=== PATIENT | female | born 1995 | race Hispanic/Latino ===

== ENCOUNTER 2016-07-18 10:48 | Emergency (ER) | payer OTHER ==
[2016-07-18 11:08] VITALS: BP 116/62; PULSE 150; RESP 18; O2SAT 98
[2016-07-18] MEDS ORDERED: MetoCLOpramide 5 mg/mL 2 mL Inj IVPUSH ONE (11:40)
[2016-07-18] MEDS ORDERED: 0.9% Sodium Chloride 1,000 ML IV ONE ×2 (11:40→13:55)
--- NOTE | 2016-07-18 12:19 | ED.REPORT ---
XEP-Dau-Gkgy Illness Date of Service Jul 18, 2016 ED Provider: Jack Crook PA-C Luis Fernando is an otherwise healthy 21-year-old female who presents to the chief complaint of fever and vomiting. Patient reports a three-day history of sore throat, fever/chills, ear pain, headache, cough productive of yellow sputum , nausea and vomiting associated with the cough. She has been treating her fever with one regular strength Tylenol. Her has been uncomplicated to this point and she is followed by Dr. Alexis Feldman. She is up-to-date on her vaccinations including the flu shot. Denies shortness of breath, wheezing, chest pain, urinary symptoms, vaginal bleeding. Nursing Notes Stated Complaint: FEVER/ VOMITING Chief Complaint: FLU/Cold Symptoms Nursing Notes Reviewed: Yes Allergies: Coded Allergies: No Known Allergies (Unverified , 07/18/16) Scheduled PRN Metoclopramide (Metoclopramide) 10 Mg Tablet 10 MG PO QID PRN PRN For Nausea General Time Seen by Provider: 11:35 Chief Complaint Fever Review of Systems Negative unless stated otherwise in history of present illness Physical Exam General: , Well appearing, well developed, well nourished, no acute distress. Head: Atraumatic, normocephalic. No mastoid tenderness. Eyes: No scleral icterus or injection. No discharge. PERRL. Vision grossly intact. No conjunctival pallor. Ears: Pinna and tragus nontender with manipulation. External auditory canal patent, atraumatic and without discharge. Tympanic membrane bettencourt, shiny and translucent without fluid, bulging, retraction or perforation. Hearing grossly intact. Nose: Symmetrical, nares patent without discharge. No frontal or maxillary sinus tenderness. Mouth/pharynx: normal dentition, mucus membranes moist. Tonsils 2+ and symmetrical, uvula midline. Pharynx noninjected, no cobblestoning or discharge. Voice clear. Neck: No tenderness or lymphadenopathy. Trachea midline. Respiratory: Regular rate and rhythm. Breath sounds present, clear to auscultation and equal bilaterally. Cardiovascular: Regular rate and rhythm, without murmur, gallop or rub. No pedal edema. Gastrointestinal: abdomen non-tender without guarding or rebound. Bowel sounds normoactive. Skin: Warm and dry. Neurological: Grossly nonfocal. Psychological: Alert and oriented. Speech appropriate, linear and logical. Behavior appropriate. Initial Vital Signs Vital Signs (First) Date Time Temp Pulse Resp B/P Pulse Ox O2 Delivery O2 Flow Rate FiO2 07/18/16 11:08 37.4 150 18 116/62 98 07/18/16 13:54 Room Air Initial VS: Reviewed, Vital signs abnormal (tachycardic) Interpretation & Diagnostics Interpretation & Diagnostics: Positive for flu A, negative for flu B Lab Results Interpretation Test 07/18/16 12:41 Hold Purple Top Tube Received (Received) Hold Blue Top Tube Received (Received) Hold [place] Top Tube Received (Received) Re-Evaluation & MDM Med Decision/Clinical Course PERC criteria not met (HR =124) Wells' Criteria low risk History and physical raise concern for flu, pneumonia, preeclampsia. Flu swab is positive for flu a, and physical is reassuring regarding other diagnoses. Pulmonary embolus is considered due to significant tachycardia on presentation that improved only slightly after 2 L of fluid. I discussed case with Dr. Dodson, who evaluated the patient. We feel that her tachycardia is well explained by the presence of influenza and . Tamiflu is eliminated because of the duration of symptoms. Offered symptomatic care. Discharge the patient to primary care follow-up within 2 days and provided return precautions. Re-Evaluation/Progress #1: Time of Eval: 12:58 Re-Evaluation/Progress Note: Nausea improved, still feels flushed and heart rate measured at 140 bpm. NS has just started Re-Evaluation/Progress #2: Time of Eval: 16:07 Re-Evaluation/Progress Note: Following 2 L of normal saline, Patient still feels well, however tachycardia is not resolved measuring about 124. Respiratory rate 20. Consultation #1: Referral / Consult Name: Ailyn Pettit MD Requested Call at: 16:21 Call Returned at: 16:26 Note: Discussed the case, Dr. Pettit feels that I should work her up for PE if tachycardia not Sufficiently explained by flu symptoms. Consultation #2: Referral / Consult Name: Juan David Dodson MD Call Returned at: 16:36 Note: Discussed case with Dr. Dodson, who met with and examine the patient. He feels the tachycardia is sufficiently explained by the patient's and active influenza. Advised discharge with close follow-up. Patient Discharge & Departure Impression: Primary Impression: Influenza due to influenza A virus Disposition: Home Discharge Condition All VS Reviewed: Yes Condition: Stable Patient Instructions: Influenza (ED) Additional Instructions: Evaluation for fever and vomiting in the emergency department today. Flu swab was positive for influenza A. Physical exam revealed a fast heart rate that improved after 2 L of fluid. This did make me concerned for possible blood clot in your lungs, but the lack of other symptoms makes your influenza and the most likely cause of the fast heart rate. We believe you are stable and safe to be discharged home. Because your symptoms started 3 days ago there is no benefit to anti-flu medications, rather the treatment is symptomatic. I recommend [id number] Tylenol for fever and pain. Dextromethorphan (Robitussin 12 hour cough relief, or Delsym) is a safe cough suppressant during . I will prescribe an antinausea medication. Otherwise rest as much as possible and sip small amounts of fluid throughout the day. He planted food as tolerated. Follow-up with your primary care provider a couple of days. Return to emergency department for any new or worsening symptoms including vomiting not controlled with medication, high fever , severe headache, shortness of breath, cough, severe leg swelling especially if it is only in one leg. Referrals: Alexis Vazquez MD (PCP) EDSupervising Provider for APC: Juan David Dodson MD Attending Statement I was personally available for consultation in the Emergency Department. I have reviewed the chart and agree with the documentation as recorded by the Midlevel Provider, including the assessment, treatment plan, and the disposition. I examined the patient myself. I have interviewed the patient and discussed all the risk factors I do not believe that further workup is indicated at this time. Specifically I do not think a PE workup is necessary. copies to: Alexis Vazquez MD, Seth PA-C Jul 18, 2016 12:19 Juan David Dodson MD Jul 20, 2016 18:16
[2016-07-18 13:54] VITALS: BP 102/67; PULSE 114; RESP 26; O2SAT 99
[2016-07-18 16:30] VITALS: BP 98/66; PULSE 113; RESP 20; O2SAT 98
[2016-07-18] MEDS ORDERED: METO10TA3 PO (16:50)
== END 2016-07-18 16:45 | disposition home or self-care (01) ==
LOC: SED 10:48
DX: O99.519 Diseases of the respiratory system complicating pregnancy, unspecified trimester (principal); J10.89 Influenza due to other identified influenza virus with other manifestations; Z3A.00 Weeks of gestation of pregnancy not specified
CPT/HCPCS: 87804; 96361; 96374; 99284; J2765; J7030

== ENCOUNTER 2016-09-22 01:42 | Inpatient (IN) | payer OTHER ==
[~2016-09-22] VITALS: Ht 154.9 cm; Wt 87.1 kg
[~2016-09-22 01:42] MED LIST: METO10TA3 PO
[2016-09-22] MEDS ORDERED: Lactated Ringer's 1,000 ML IV PRN (02:37)
[2016-09-22] MEDS ORDERED: Oxytocin 10 Unit/mL Inj IM PRN ×2 (02:40→13:35)
[2016-09-22] MEDS ORDERED: Sodium Chloride LOK Flush 10 mL Syringe IVFLUSH PRN (02:40)
[2016-09-22] MEDS ORDERED: Carboprost 250 mCg/mL Inj IM PRN ×2 (02:40→13:35)
[2016-09-22] MEDS ORDERED: Oxytocin 30 Units/500 mL LR 30 UNITS in IV Premix 1 EACH IV PRN ×2 (02:40→07:25)
[2016-09-22] MEDS ORDERED: Hemorrhage Kit, Post Partum XX ONE ×2 (02:40→13:35)
[2016-09-22] MEDS ORDERED: Methylergonovine 0.2 mg/mL Inj IM PRN ×2 (02:40→13:35)
[2016-09-22] MEDS ORDERED: fentaNYL-PF 50 mCg/mL 2 mL Inj IVPUSH PRN (02:50)
[2016-09-22 03:00] LABS: Mean Corpuscular Hemoglobin 27.6 pg (27.0-35.0)
--- NOTE | 2016-09-22 04:09 | HP ---
[address] [address] HISTORY AND PHYSICAL PATIENT: EVERARDO CONKLIN : 1995 MR#: [id number] ADMIT: 09/22/2016 JOB ID: [id number] CHIEF COMPLAINT: Contractions. HISTORY OF PRESENT ILLNESS: This is a 21-year-old obstetrical patient of mine who is a primipara with a due date of September 21, who presents complaining of increasing contraction intensity and frequency over the last 24 hours. She notes passing of mucus plug off and on through the 24 hours, but otherwise no vaginal discharge. She came into the Center overnight last night with contractions, but once she was here the contractions fell off and she was found to be entirely closed, not dilated at all, but very thin, and she was sent home. On presentation here, she is 4-5 cm, 80% effaced, and baldo regularly, and so was admitted for expectant management. heart tracing remains nice and reactive. She has no other acute complaints. PAST OBSTETRICAL HISTORY: She is a primiparous patient with gynecological history that is fairly unremarkable, except for an ovarian cyst on the right that was merely observed and not treated aggressively. She had menarche at 12 years old and has periods that are fairly irregular, about every 30 days, lasting about five days per menses. Otherwise, her gynecological history is unremarkable. Her course has been unremarkable. Her due date is based on a six week ultrasound. LABORATORIES: Her blood type is A-positive. She is rubella immune. Serology is nonreactive. She is negative hepatitis B, hepatitis C, HIV, antibody screen, Chlamydia and gonorrhea. Hematocrit is 37.5 with the initial set of labs and at 28 weeks dropped down to 33.8. Pap smear was fairly unremarkable. MSAFP test was done around 18 weeks and was normal. Diabetic screening test was done at 28 weeks and was negative. Group B strep was done at about 36 weeks and was negative. Of note, she did get a flu vaccination and Tdap in March and April respectively. PAST MEDICAL HISTORY: Entirely unremarkable. SURGICAL HISTORY: Negative. FAMILY HISTORY: Significant for diabetes in her father and paternal grandmother, and hypertension in maternal grandmother. She has a paternal aunt with twins. SOCIAL HISTORY: The patient lives in [place] with her parents. 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 She is a nonsmoker, having never smoked, and does not drink any alcohol. ALLERGIES: The patient has no known drug allergies. CURRENT MEDICATIONS: None, except for vitamins. REVIEW OF SYSTEMS: The patient denies any chest pain, palpitations, or shortness of breath. No abdominal pain except for the contraction pain. No recent illness. No swelling in her feet. No significant headaches and no visual changes. PHYSICAL EXAMINATION: Well-developed obese woman in no apparent distress. Her vital signs are normal. Weight is 193 pounds. Height is 61 inches. Lungs are clear to auscultation bilaterally with good air movement. Heart is regular rate and rhythm. No significant murmur is heard. Abdomen: Gravid, otherwise unremarkable. Extremities show no cyanosis, clubbing or edema. Normal deep tendon reflexes. Cervical exam shows her to be 4-5 cm, 80% effaced, -2 station, vertex position. heart tracing is reactive. She is baldo about every 2-3 minutes. ASSESSMENT AND PLAN: Intrauterine at term, in active labor. Will admit for expectant management. The patient is interested in getting an epidural so I have discussed the case with Anesthesia to ask for their assistance. I discussed routine expectant management issues and procedures. Also, I discussed potential complications and the usual obstetrical procedures to address them, but also the possible need for surgical care if a section becomes needed. I also discussed the possible need for assistance with vacuum extraction and the associated potential complications. All of her questions were answered, she expressed understanding of these issues, and is willing to proceed.
[2016-09-22] MEDS ORDERED: Lactated Ringer's 500 ML IV ONE (04:49)
[2016-09-22] MEDS: Lactated Ringer's 1,000 ML IV SCH ×5 (04:49→21:35)
--- NOTE | 2016-09-22 04:49 | PCM.HPANE ---
Patient Data Date of Service: Sep 22, 2016 Surgeon Admitting Provider:Alexis Vazquez MD Attending Provider:Alexis Vazquez MD Primary Care Physician:Alexis Vazquez MD Other Provider:Clary Garcia Anesthesia Reason for Visit TERM TERM Ht/WT & BMI Height (Centimeters): 154 Weight (Kilograms): 87 Body Mass Index 36.3 Allergies Coded Allergies: No Known Allergies (Unverified , 07/18/16) Diabetes History Hx Diabetes?: No Medications Active Scripts Metoclopramide 10 Mg Eisdar21 Mg PO QID PRN For Nausea #30 TABLET Ref 0 Prov:ArmaanJack RECINOS 07/18/16 History History of ENT Problems?: No Hx of Heart Problems?: No Cardiovascular History: Denies:: Congestive Heart Failure Hypertension Hx of Respiratory Problem?: No Respiratory History: Denies:: Tuberculosis Hx Neurologic Problems?: No Hx of GI Problems?: No Hx of Problems?: No HX of Peritoneal Dialysis: No Female Hx: Positive for:: Currently Hx Musculoskeletal Problems?: No Hx of Psycho/Social Problems?: No Hx Surgeries?: No Hx Any Other Health Problems?: No Hx Diabetes: No Hx Alcohol Use: NoHx Substance Use: No Smoking Status: Never Smoker Stop/Bang Treated for Sleep Apnea?: No Do You Have a CPAP Machine?: No TONYA Risk Assessment: Low Risk, <3 Yes Risk Assessment Category Category 1A: Patient has history of documented sleep apnea, and HAS NOT received any narcotic, sedative or anesthesia administration during this stay. Category 1B: Patient has history of documented sleep apnea, and HAS received any narcotic , sedative or anesthesia administration during this stay Category 2: Patient has SUSPECTED Obstructive Sleep Apnea, and HAS received any narcotic , sedative or anesthesia administration during this stay. Category 3: Patient has SUSPECTED Obstructive Sleep Apnea and HAS NOT received narcotic, sedative or anesthesia administration during this stay. Category 4: Outpatient in Procedural Areas with known sleep apnea or who screen positive for High Risk via the STOP/BANG questionnaire. Exam Exam Vital Signs See OB vitals charting and vitals reviewed on anesthetic record General Appearance: Alert, Oriented X3, Cooperative HEENT/AIRWAY: MP 2, Neck Movement (OK), Mouth Opening (Wide) Lungs: Clear to Auscultation, Normal Air Movement Heart: Regular Rate/Rhythm, Normal S1, Normal S2 Meds/Labs/Diagnostics Labs Test 09/22/16 02:45 White Blood Count 8.4th/mm3 (3.8-10.1) Red Blood Count 4.13mil/mm3 (3.90-5.20) Hemoglobin 11.4g/dL (12.0-15.6) Hematocrit 34.7% (35.0-46.0) Mean Corpuscular Volume 84.0fL (81-100) Mean Corpuscular Hemoglobin 27.6pg (27.0-35.0) Mean Corpuscular Hemoglobin Concent 32.9% (32.0-37.0) Red Cell Distribution Width 14.5% (12.3-15.4) Platelet Count 348bil/L (150-400) Plan Impression Patient chart reviewed, patient interviewed and anesthestic plan with risks, benefits, and alternatives discussed, and informed consent obtained. NPO Status: Full ASA Physical Status: ASA2 Mod Systemic Disease Anesthetic Plan: Epidural Bene/Risks/Altern/Consents: Yes HP Complete Prior to Induction: Yes Smith Kim MD Sep 22, 2016 04:49
[2016-09-22] MEDS ORDERED: EPHEDrine Sulfate 50 mg/mL Inj IVPUSH PRN (04:50)
[2016-09-22] MEDS ORDERED: fentaNYL 2 mCg/mL-Bupiv 0.125% 100 ML EPIDURAL SCH (04:50)
[2016-09-22] MEDS ORDERED: Ondansetron 2 mg/mL 2 mL Inj IVPUSH PRN (04:50)
[2016-09-22] MEDS ORDERED: Atropine 1 mg/10 mL (Code) Syringe IVPUSH PRN (04:50)
[2016-09-22] MEDS ORDERED: Benzocaine (Dermoplast) 20% 60 Gm Spray TOPICAL PRN (13:35)
[2016-09-22] MEDS ORDERED: LANOlin HPA 7 Gm Ointment TOPICAL PRN (13:35)
[2016-09-22] MEDS ORDERED: oxyCODONE-Acetamin 5-325 mg Tablet PO PRN (13:35)
[2016-09-22] MEDS ORDERED: Witch Hazel-Glycerin Pads TOPICAL PRN (13:35)
[2016-09-22] MEDS: Sodium Chloride LOK Flush 10 mL Syringe IVFLUSH SCH ×2 (16:30→21:33)
[2016-09-22] MEDS: Ascorbic Acid 500 mg Tablet PO SCH (19:22)
[2016-09-23] MEDS: Sodium Chloride LOK Flush 10 mL Syringe IVFLUSH SCH (00:30)
[2016-09-23] MEDS: Lactated Ringer's 1,000 ML IV SCH ×2 (04:49→05:35)
[2016-09-23 06:26] LABS: Mean Corpuscular Hemoglobin 27.7 pg (27.0-35.0); Mean Corpuscular Volume 85.1 fL (81-100)
[2016-09-23] MEDS: Ascorbic Acid 500 mg Tablet PO SCH (07:32)
--- NOTE | 2016-09-23 13:05 | PCM.DIOB ---
Obstetrical Disch Instruction Date of Service: Sep 23, 2016 Dates of Hospitalization Date of Hospital Admission Sep 22, 2016 at 02:10 Providers Admitting Physician: Alexis Vazquez MD Primary Care Physician: Alexis Vazquez MD Attending Physician: Alexis Vazquez MD Discharge Diagnosis Discharge Diagnosis s/p at Term Problems: Diet Discharge Diet: No restrictions Activity Discharge Activity-General: Pelvic Rest for 6 weeks, Try not to overdue, Be up and about, Balance rest and activity Dressing and Incisional Care Hygiene: May shower, Perineal care Follow Up Plan Follow Up Plan f/u with me in 6 weeks and as needed. Follow-up Provider (F9): Alexis Vazquez MD Follow-up appointment: Weeks (six) Call your provider for: Fever or Chills, Shortness of breath, Heavy vaginal bleeding, Heavy bleeding, Epigastric pain, Excessive constipation, Vaginal discomfort, Red painful breasts Alexis Vazquez MD Sep 23, 2016 13:05
[2016-09-23] MEDS ORDERED: IBUP800T28 PO (13:06)
[2016-09-23 13:27] VITALS: BP 118/61; PULSE 68; RESP 16
--- NOTE | 2016-09-24 06:19 | DIS ---
[address] [address] DISCHARGE SUMMARY PATIENT: EVERARDO CONKLIN : 1995 MR#: [id number] ADMIT: 09/22/2016 JOB ID: [id number] DIS: 09/23/2016 DISCHARGE DIAGNOSIS: Spontaneous vaginal delivery at term. HISTORY AND PHYSICAL: Please see my admission H and P for details. CONSULTATIONS: None. PROCEDURES: The patient had a spontaneous vaginal delivery on September 22. Please see my delivery note for full details. HOSPITAL COURSE: The patient came in, in active labor to the Center. She was about 5 cm initially and actively baldo. After she was admitted, she elected to get an epidural. This was placed with excellent results. She continued to progress, although more slowly and so, Pitocin was added to augment her labor with good success. She ended up becoming complete around noon or so on the and then began pushing and eventually delivered a baby boy vaginally without any significant problems. Please see my delivery note for full details. Her course has also been unremarkable. She reports decreasing lochia and no significant perineal or breast discomfort. OBJECTIVE: Well-developed, well-nourished woman in no apparent distress. Her vital signs are normal. Lungs are clear to auscultation bilaterally with good air movement. Heart is regular rate and rhythm. No significant murmurs heard. The abdomen is benign. Extremities show no significant edema and normal deep tendon reflexes. Uterus is firm and below the umbilicus. ASSESSMENT AND PLAN: Status post spontaneous vaginal delivery approximately 24 hours earlier. She is improving and stable, and we will plan on discharging today. She is not having any significant discomfort and reports that ibuprofen adequately manages this. She is provided a prescription for ibuprofen 800 mg tablets to use 1 t.i.d. p.r.n. for breakthrough pain. FOLLOWUP: Told to follow up in six weeks for checkup, otherwise as needed.
== END 2016-09-23 16:30 | disposition home or self-care (01) | DRG 560 ==
LOC: FBCO 01:42 → FBC 02:10
PROVIDERS: ADMIT Family Medicine; ATTEND Family Medicine
PROC: 10E0XZZ Delivery of Products of Conception, External Approach (ICD-10-PCS; principal; 2016-09-22)
PROC: 0KQM0ZZ Repair Perineum Muscle, Open Approach (ICD-10-PCS; 2016-09-22)
PROC: 10907ZC Drainage of Amniotic Fluid, Therapeutic from Products of Conception, Via Natural or Artificial Opening (ICD-10-PCS; 2016-09-22)
DX: O77.0 Labor and delivery complicated by meconium in amniotic fluid (principal); O70.1 Second degree perineal laceration during delivery; Z3A.40 40 weeks gestation of pregnancy; Z37.0 Single live birth